=== PATIENT | female | born 2000 | race Hispanic/Latino ===

== ENCOUNTER 2023-04-07 23:14 | Emergency (ER) | payer SELFPAY | END 2023-04-07 23:37 | disposition home or self-care (01) | LOC: CSHERS 23:14 | DX: N60.01 Solitary cyst of right breast (principal) | CPT/HCPCS: 99281 ==

== ENCOUNTER 2023-10-21 17:48 | Emergency (ER) | payer SELFPAY ==
[2023-10-21] MEDS ORDERED: Acetaminophen 500 MG TAB ONE (18:12)
[2023-10-21 18:52] LABS: #Eosinphils 0.3 10x3/uL (0.0-0.5); #Monocytes 0.5 10x3/uL (0.0-1.1); #Neutrophils 3.9 10x3/uL (1.5-8.4); %Basophils 0.3 % (0.0-2.0); %Eosinophils 4.6 % (0.0-6.0); %Lymphocytes 33.6 % (18.0-47.0); %Neutrophils 54.4 % (40.0-75.0); Hemoglobin 11.1 g/dL (12.0-15.5); Mean Corpuscular HGB CONC 32.6 g/dL (32.0-36.0); Mean Corpuscular Hemoglobin 27.3 pg (27.0-33.0); Mean Corpuscular Volume 83.5 fl (81.6-98.3); Mean Platelet Volume 9.4 fl (7.4-10.4); Platelet Count 259 10x3/uL (150-450); RBC Distribution Width 14.4 % (11.5-14.5); Red Blood Cell (RBC) Count 4.07 10x6/uL (3.90-5.03); White Blood Cell (WBC) Count 7.2 10x3/uL (3.5-10.5)
== END 2023-10-21 21:28 | disposition home or self-care (01) ==
LOC: CSHERS 17:48
DX: O20.0 Threatened abortion (principal); Z3A.01 Less than 8 weeks gestation of pregnancy
CPT/HCPCS: 36415; 76856; 84702; 85025; 86850; 86900; 86901